=== PATIENT | male | born 1945 | race Caucasian/White ===

== ENCOUNTER 2021-06-21 21:32 | Inpatient (IN) | payer MEDICARE, SELFPAY ==
[2021-06-21] VITALS (7 sets, daily range): BP systolic 157–167; BP diastolic 77–81; PULSE 58–70; TEMP 36.9; O2SAT 96–97
[2021-06-21] MEDS: LIDOCAINE 1% (PF) 6 ML SUBCUT (23:33)
--- NOTE | 2021-06-21 23:36 | ED_ITS ---
HPI - Extremity Injury (Upper) General Chief Complaint: Extremity Injury, Upper Stated Complaint: infected finger Time Seen by Provider: 06/21/21 23:17 Source: patient Mode of arrival: Ambulatory History of Present Illness HPI narrative: Patient is a very healthy 75-year-old male who presents with right____ finger swelling. He noticed over the last 3-4 days. He says primary care provider today who started him on Bactrim he has taken 1 dose. There is even small I and D done in the office however the swelling has come back this evening and is more swollen he has got redness streaking up his arm. No fever or chills. He is having decreased range of motion due to swelling and pain. Related Data Previous Rx's Medication Instructions Recorded sulfamethoxazole 800 1 tab PO Q12H #20 tab 06/21/21 mg-trimethoprim 160 mg tablet (Bactrim DS) Allergies Allergy/AdvReac Type Severity Reaction Status Date / Time grass pollen Allergy Intermediate Verified 06/21/21 12:12 Review of Systems Review of Systems Narrative: GENERAL: Denies chills,fever HEENT: Denies throat pain RESPIRATORY: Denies dyspnea, cough, wheezing CARDIOVASCULAR: Denies chest pain, palpitations GASTROINTESTINAL: Denies nausea, vomiting MUSCULOSKELETAL: Denies extremity pain, injury SKIN: See HPI NEUROLOGIC: Denies weakness, dizziness, headache, numbness 8 point review of systems is negative except for those stated above and HPI Patient History Social History Smoking Status: Never smoker Smoking Status: Never smoker Exam Initial Vital Signs Initial Vital Signs: Vital Signs Pulse Rate 70 06/21/21 22:22 Blood Pressure 167/78 H 06/21/21 22:22 Pulse Oximetry 97 06/21/21 22:22 GENERAL: Well-appearing, well-nourished and in no acute distress. CARDIOVASCULAR: peripheral pulses in tact, cap refill <2 sec RESPIRATORY: No respiratory distress, speaks in full sentences without difficulty EXTREMITIES: Normal range of motion, no clubbing or edema. Neurovascularly intact NEUROLOGICAL: Cranial nerves II through XII grossly intact. Normal gait and speech. SKIN: Right 4th finger just proximal to nail there is significant swelling and fluctuation about 2 cm x 2 cm. Finger is quite tender to touch. He also has erythema streaking up beyond his elbow. Procedures Abscess I/D I&D #1: Site: other (Finger) Side (if applicable): right Local Anesthetic: lidocaine 1% Amount of anesthesia used (mL): 4 Technique: incised with #11 blade Amount of fluid expressed (mL): 2 Irrigation: No Nerve Block Nerve Block 1: Local Anesthetic: lidocaine 1% Amount of anesthesia used (mL): 4 Side: right Nerve Blocks: digital Procedure Successful: Yes Patient Tolerated Procedure: Well Complications: none Course Orders Ordered: ED Orders 06/21/21 23:45 Blood Culture Stat CBC Auto Diff [Complete Blood Count AUTO DIFF] Stat CMP [Comprehensive Metabolic Panel] Stat Lactate (Lactic Acid) Stat Procalcitonin Stat 06/22/21 00:59 Wound Culture and Gram Stain Stat Discontinued Medications Hydromorphone HCl (Hydromorphone 0.5 Mg Inj) 0.5 mg IV NOW ONE Stop: 06/22/21 01:06 Last Admin: 06/22/21 01:09 Dose: 0.5 mg Documented by: DANIELLE Ceftriaxone Sodium 1,000 mg/ (Sodium Chloride) 100 mls @ 200 mls/hr IV NOW ONE Stop: 06/22/21 00:29 Last Infusion: 06/22/21 01:37 Dose: 0 mls/hr Documented by: Admin: 06/22/21 00:48 Dose: 200 mls/hr Documented by: DANIELLE Vancomycin HCl/Dextrose (Vancomycin) 1,500 mg in 300 mls @ 200 mls/hr IV NOW ONE Stop: 06/22/21 03:41 Last Infusion: 06/22/21 04:00 Dose: 0 mls/hr Documented by: Admin: 06/22/21 02:15 Dose: 200 mls/hr Documented by: DANIELLE Ketorolac Tromethamine (Ketorolac 30 Mg/Ml Vial) 15 mg IV NOW ONE Stop: 06/22/21 01:07 Last Admin: 06/22/21 01:09 Dose: 15 mg Documented by: DANIELLE Lidocaine HCl (Lidocaine 1% (Pf)) 6 ml SUBCUT NOW ONE Stop: 06/21/21 23:27 Last Admin: 06/21/21 23:33 Dose: 6 ml Documented by: DANIELLE Morphine Sulfate (Morphine 2 Mg/Ml Inj) 2 mg IV NOW ONE Stop: 06/22/21 00:38 Last Admin: 06/22/21 00:48 Dose: 2 mg Documented by: DANIELLE Vital Signs Vital signs: Vital Signs - 8 hr 06/21/21 22:22 06/21/21 22:30 06/21/21 22:31 Temperature Pulse Rate 70 59 L 62 Blood Pressure 167/78 H 165/77 H Pulse Oximetry 97 97 96 06/21/21 22:46 06/21/21 23:00 06/21/21 23:01 Temperature 98.4 F Pulse Rate 58 L 62 Blood Pressure 157/81 H Pulse Oximetry 97 96 06/21/21 23:30 06/22/21 00:00 06/22/21 00:30 Temperature Pulse Rate 65 62 61 Blood Pressure 162/81 H Pulse Oximetry 97 99 97 06/22/21 00:56 06/22/21 01:00 06/22/21 01:01 Temperature Pulse Rate 64 60 59 L Blood Pressure 172/85 H 159/77 H Pulse Oximetry 98 99 99 06/22/21 01:30 06/22/21 02:00 06/22/21 02:01 Temperature Pulse Rate 60 62 65 Blood Pressure 170/89 H Pulse Oximetry 99 97 94 06/22/21 02:30 Temperature Pulse Rate 60 Blood Pressure Pulse Oximetry 97 MDM - Extremity Injury (Upper) Lab Data Result diagrams: 06/21/21 23:45 06/21/21 23:45 Labs: Lab Results 06/21/21 06/21/21 06/21/21 Range/Units 23:45 23:45 23:45 WBC 7.4 (4.5-11.0) X10^3/uL RBC 3.94 L (4.5-5.9) X10^6/uL Hgb 12.5 L (13.5-17.5) g/dL Hct 36.4 L (41-53) % MCV 92.4 (80-100) fL MCH 31.8 (26-34) PG MCHC 34.4 (30-36) % RDW 12.8 (11.6-14.8) % Plt Count 184 (150-400) X10^3/uL Neut % (Auto) 79.5 H (50-75) % Lymph % (Auto) 11.0 L (25-40) % [place] % (Auto) 7.7 (3-14) % Eos % (Auto) 1.5 L (2-4) % Baso % (Auto) 0.3 (0-2) % Neut # (Auto) 5900 (2485-9761) /uL Lymph # (Auto) 800 L (2965-8641) /uL [place] # (Auto) 600 (0-900) /uL Eos # (Auto) 100 (0-450) /uL Baso # (Auto) 0 (0-100) /uL Sodium 137 (137-145) mmol/L Potassium 3.7 (3.4-5.1) mmol/L Chloride 107 (98-107) mmol/L Carbon Dioxide 24 (22-32) mmol/L BUN 16 (9-20) mg/dL Creatinine 0.77 (0.66-1.25) mg/dL Estimated GFR > 60 (>60) mL/min BUN/Creatinine Ratio 20.8 (6-22) Glucose 112 H (80-110) mg/dL Lactate 0.6 L (0.7-2.1) mmol/L Calcium 8.6 (8.4-10.2) mg/dL Total Bilirubin 1.1 (0.2-1.3) mg/dL AST 34 (17-59) IU/L ALT 31 (<50) IU/L Alkaline Phosphatase 78 (38-126) U/L Total Protein 7.2 (6.3-8.2) g/dL Albumin 3.9 (3.5-5.0) g/dL Globulin 3.3 (1.7-4.1) g/dL Albumin/Globulin Ratio 1.2 (1.0-2.8) Procalcitonin (<0.5) ng/mL 06/21/21 Range/Units 23:45 WBC (4.5-11.0) X10^3/uL RBC (4.5-5.9) X10^6/uL Hgb (13.5-17.5) g/dL Hct (41-53) % MCV (80-100) fL MCH (26-34) PG MCHC (30-36) % RDW (11.6-14.8) % Plt Count (150-400) X10^3/uL Neut % (Auto) (50-75) % Lymph % (Auto) (25-40) % [place] % (Auto) (3-14) % Eos % (Auto) (2-4) % Baso % (Auto) (0-2) % Neut # (Auto) (1528-5314) /uL Lymph # (Auto) (8351-3535) /uL [place] # (Auto) (0-900) /uL Eos # (Auto) (0-450) /uL Baso # (Auto) (0-100) /uL Sodium (137-145) mmol/L Potassium (3.4-5.1) mmol/L Chloride (98-107) mmol/L Carbon Dioxide (22-32) mmol/L BUN (9-20) mg/dL Creatinine (0.66-1.25) mg/dL Estimated GFR (>60) mL/min BUN/Creatinine Ratio (6-22) Glucose (80-110) mg/dL Lactate (0.7-2.1) mmol/L Calcium (8.4-10.2) mg/dL Total Bilirubin (0.2-1.3) mg/dL AST (17-59) IU/L ALT (<50) IU/L Alkaline Phosphatase (38-126) U/L Total Protein (6.3-8.2) g/dL Albumin (3.5-5.0) g/dL Globulin (1.7-4.1) g/dL Albumin/Globulin Ratio (1.0-2.8) Procalcitonin 0.07 (<0.5) ng/mL MDM Narrative Medical decision making narrative: Patient has an obvious fluctuation on dorsal side of the hand just below the nail. I did I and D that area but only clear fluid came out. He has some streaking extending the on his antecubital fossa. The patient was unaware of streaking so was nursing. It is possible this developed in the emergency department. Patient remains afebrile blood work actually overall is reassuring. Patient is afebrile here with out erythema, no sign of sepsis. Concern for possible worsening infection possible abscess on finger. 1123-Dr. Edmond was consult prior to I and D he suggests keeping wound open with packing as best as possible and to closely monitor Dr. Ball updated on patient's symptoms test results and accepts patient Dr. Edmond is week consult id states admit to Medicine and he will evaluate Discharge Plan Departure Patient Disposition: Admitted as Observation Clinical Impression: Cellulitis of finger of right hand Admit Date/Time: 06/22/21 02:54 Admit Provider: Marcelo Ball
[2021-06-22] VITALS (25 sets, daily range): BP systolic 123–172; BP diastolic 63–89; PULSE 39–80; RESP 16–20; TEMP 36.8–37.3; O2SAT 94–99; BMI 27.1
[2021-06-22 00:09] LABS: Add Manual Diff / Slide Review NO; Basophils Absolute Auto 0 /uL (0-100); Basophils Percent Auto 0.3 % (0-2); Eosinophils Absolute Auto 100 /uL (0-450); Eosinophils Percent Auto 1.5 % (2-4); Hematocrit 36.4 % (41-53); Hemoglobin 12.5 g/dL (13.5-17.5); Lactate (Lactic Acid) 0.6 mmol/L (0.7-2.1); Lymphocytes Absolute Auto 800 /uL (1100-4500); Mean Corpuscular HGB Conc 34.4 % (30-36); Mean Corpuscular Hemoglobin 31.8 PG (26-34); Mean Corpuscular Volume 92.4 fL (80-100); Monocytes Absolute Auto 600 /uL (0-900); Monocytes Percent Auto 7.7 % (3-14); Neutrophils Absolute Auto 5900 /uL (1500-7000); Neutrophils Percent Auto 79.5 % (50-75); Platelet Count 184 X10^3/uL (150-400); Red Blood Cell Count 3.94 X10^6/uL (4.5-5.9); Red Cell Distribution Width 12.8 % (11.6-14.8); White Blood Cell Count 7.4 X10^3/uL (4.5-11.0)
[2021-06-22 00:17] LABS: Alanine Aminotransferase 31 IU/L (<50); Albumin 3.9 g/dL (3.5-5.0); Albumin Globulin Ratio 1.2 (1.0-2.8); Alkaline Phosphatase 78 U/L (38-126); Aspartate Aminotransferase 34 IU/L (17-59); BUN Creatinine Ratio 20.8 (6-22); Bilirubin Total 1.1 mg/dL (0.2-1.3); Blood Urea Nitrogen 16 mg/dL (9-20); Calcium 8.6 mg/dL (8.4-10.2); Carbon Dioxide 24 mmol/L (22-32); Chloride 107 mmol/L (98-107); Estimated Glomerular Filt Rate > 60 mL/min (>60); Globulin 3.3 g/dL (1.7-4.1); Glucose 112 mg/dL (80-110); HEMOLYSIS < 15 (0-50); Potassium 3.7 mmol/L (3.4-5.1); Sodium 137 mmol/L (137-145); Total Protein 7.2 g/dL (6.3-8.2)
[2021-06-22 00:39] LABS: Procalcitonin 0.07 ng/mL (<0.5)
[2021-06-22] MEDS: MORPHINE 2 MG/ML INJ IV (00:48)
[2021-06-22] MEDS: cefTRIAXone 1,000 MG in SODIUM CHLORIDE 0.9% 100 ML 200 ML IV (00:48)
[2021-06-22] MEDS: HYDROMORPHONE 0.5 MG INJ IV (01:09)
[2021-06-22] MEDS: KETOROLAC 30 MG/ML VIAL 15 MG IV (01:09)
[2021-06-22] MEDS: VANCOMYCIN 1,500 MG/300 ML PIGGYBACK 200 MG IV (02:15)
[2021-06-22] MEDS: ACETAMINOPHEN 325 MG TABLET 650 MG PO ×2 (07:21→11:23)
[2021-06-22] MEDS: OXYCODONE IR 5 MG TABLET PO ×4 (07:21→15:39)
[2021-06-22 08:00] LABS: COVID19 -Nasal RAPID Negative (Negative)
--- NOTE | 2021-06-22 08:11 | P.HP_ITS ---
History of Present Illness History of Present Illness Date Patient Seen: 06/22/21 Time Patient Seen: 08:00 Chief complaint: infected finger Narrative: Mr. Witt is a 75M with no significant PMH who presents with right finger swelling. He thinks he might have bumped his finger a week ago and then began feeling discomfort. He had worsening swelling behind his nail and it began affecting more of his finger. He felt feverish. He presented to a clinic which tried drainage of his finger and he said little was able to drain after incision. He was given bactrim. He went home and felt worse pain, he took only 1 dose of bactrim and then presented to the ED. In the ED workup was done, no temperature was documented, vitals otherwise notable for elevated blood pressure. Labs notable for WBC 7.4. hgb 12.5, plts 184. Creatinine 0.77. Lactate 0.6. Procal 0.07. His middle finger on his right hand had notable swelling and was I+D by ED physician. Per report clear liquid was expressed. He was ordered for antibiotics. Orthopedics was consulted and he was admitted for further evaluation. Family history: patient denies any family with medical issues Patient History Family & Social History Safety & Behavioral: Feels Safe in Current Yes Environment Been Physically Hurt or No Threatened By a Person Tobacco & Substance use: Smoking Status Never smoker Meds Home Medications and Allergies Home Medications Medication Instructions Recorded Confirmed Type sulfamethoxazole 800 1 tab PO Q12H #20 tab 06/21/21 06/21/21 Rx mg-trimethoprim 160 mg tablet (Bactrim DS) Allergies Allergy/AdvReac Type Severity Reaction Status Date / Time grass pollen Allergy Intermediate Verified 06/21/21 12:12 Review of Systems Review of Systems Narrative: 14 systems reviewed and negative aside from what is noted in HPI Exam Vital Signs (past 8 hours): - 06/22/21 00:30 06/22/21 00:56 06/22/21 01:00 Temperature Pulse Rate 61 64 60 Blood Pressure 172/85 H Pulse Oximetry 97 98 99 06/22/21 01:01 06/22/21 01:30 06/22/21 02:00 Temperature Pulse Rate 59 L 60 62 Blood Pressure 159/77 H Pulse Oximetry 99 99 97 06/22/21 02:01 06/22/21 02:30 06/22/21 03:00 Temperature Pulse Rate 65 60 39 L Blood Pressure 170/89 H Pulse Oximetry 94 97 98 06/22/21 03:01 06/22/21 03:30 06/22/21 04:00 Temperature Pulse Rate 62 66 65 Blood Pressure 162/73 H Pulse Oximetry 98 98 99 06/22/21 04:01 06/22/21 04:30 06/22/21 05:00 Temperature Pulse Rate 80 66 71 Blood Pressure 133/72 Pulse Oximetry 99 97 98 06/22/21 05:30 06/22/21 06:00 06/22/21 06:30 Temperature Pulse Rate 72 67 70 Blood Pressure Pulse Oximetry 97 95 95 06/22/21 07:00 06/22/21 07:25 Temperature 98.5 F Pulse Rate 71 79 Blood Pressure 141/80 H Pulse Oximetry 96 96 Oxygen Delivery Method Room Air Narrative Exam Narrative: GEN: no acute distress HEENT: moist mucuous membranes, PERRL NECK: trachea midline, no JVD CV: regular rate and rhythm, no murmurs PULM: clear bilaterally, no wheezes, rhonchi, rales ABD: soft, nontender, nondistended, no organomegaly, normal bowel sounds EXT: warm and well perfused with no edema, right middle finger with swelling and fluctiatio, tender to touch, entire finger is also swollen and erythemaouts, lymphangitic streaking noted on forearm to elbow, does have some limited motion with finger NEURO: awake, alert, with no focal deficits Objective Labs Result Diagrams: 06/21/21 23:45 06/21/21 23:45 Labs: Laboratory Results - last 24 hr 06/21/21 06/21/21 06/21/21 23:45 23:45 23:45 WBC 7.4 RBC 3.94 L Hgb 12.5 L Hct 36.4 L MCV 92.4 MCH 31.8 MCHC 34.4 RDW 12.8 Plt Count 184 Neut % (Auto) 79.5 H Lymph % (Auto) 11.0 L [place] % (Auto) 7.7 Eos % (Auto) 1.5 L Baso % (Auto) 0.3 Neut # (Auto) 5900 Lymph # (Auto) 800 L [place] # (Auto) 600 Eos # (Auto) 100 Baso # (Auto) 0 Sodium 137 Potassium 3.7 Chloride 107 Carbon Dioxide 24 BUN 16 Creatinine 0.77 Estimated GFR > 60 BUN/Creatinine Ratio 20.8 Glucose 112 H Lactate 0.6 L Calcium 8.6 Total Bilirubin 1.1 AST 34 ALT 31 Alkaline Phosphatase 78 Total Protein 7.2 Albumin 3.9 Globulin 3.3 Albumin/Globulin Ratio 1.2 Procalcitonin SARS-CoV-2 (PCR) 06/21/21 06/22/21 23:45 07:29 WBC RBC Hgb Hct MCV MCH MCHC RDW Plt Count Neut % (Auto) Lymph % (Auto) [place] % (Auto) Eos % (Auto) Baso % (Auto) Neut # (Auto) Lymph # (Auto) [place] # (Auto) Eos # (Auto) Baso # (Auto) Sodium Potassium Chloride Carbon Dioxide BUN Creatinine Estimated GFR BUN/Creatinine Ratio Glucose Lactate Calcium Total Bilirubin AST ALT Alkaline Phosphatase Total Protein Albumin Globulin Albumin/Globulin Ratio Procalcitonin 0.07 SARS-CoV-2 (PCR) Negative Assessment & Plan Assessment & Plan narrative: Mr. Diaz is a 75M with no significant PMH who presents with cellulitis with infected right middle finger 1. Acute cellulitis of right middle finger -continue on IV antibiotics -follow up cultures -no imaging for now -ortho consult to evalute if needs further surgical intervention -keep hand elevated CODE: Full Proxy: Chepe Witt, spouse I have utilized all available resources to reconcile the patient's home med ications Time Spent With Patient Critical Care time: I spent a total of [] minutes of critical care time on this patient's care today; this time is exclusive of procedural time.
[2021-06-22] MEDS: ENOXAPARIN 40 MG/0.4 ML SYRINGE SUBCUT (09:31)
[2021-06-22] MEDS: VANCOMYCIN 1,000 MG/200 ML PIGGYBACK 200 MG IV ×2 (11:23→18:21)
--- NOTE | 2021-06-22 14:56 | PM.CN ---
History of Present Illness Consult details Date Patient Seen: 06/22/21 Time Patient Seen: 14:57 Chief complaint: infected finger Narrative: Mr. Witt is a 75M with no significant PMH who presents with right ring finger swelling. He thinks he might have bumped his finger a week ago and then began feeling discomfort. He had worsening swelling behind his nail and it began affecting more of his finger. He felt feverish. He presented to a clinic and per the physician's report there was a small amount of purulent drainage. He was given bactrim. He went home and felt worse pain, he took only 1 dose of bactrim and then presented to the ED. In the ED workup was done, no temperature was documented, vitals otherwise notable for elevated blood pressure. His ring finger on his right hand had notable swelling and was incised and drained by ED physician. Per report clear liquid was expressed. He received rocephin and vancomycin. Dr Croft was consulted and suggested that the wound be left open and packed if possible. He was admitted to the hospitalist service for antibiotics and surveillance. He continues on vancomycin. Meds Home Medications and Allergies Home Medications Medication Instructions Recorded Confirmed Type sulfamethoxazole 800 1 tab PO Q12H #20 tab 06/21/21 06/21/21 Rx mg-trimethoprim 160 mg tablet (Bactrim DS) Allergies Allergy/AdvReac Type Severity Reaction Status Date / Time grass pollen Allergy Intermediate Verified 06/21/21 12:12 Review of Systems Constitutional Constitutional: Reports system reviewed and no additional complaints, except as documented Exam Vital Signs (past 8 hours): - 06/22/21 07:00 06/22/21 07:25 06/22/21 13:03 Temperature 98.5 F Pulse Rate 71 79 70 Respiratory Rate 16 Blood Pressure 141/80 H 123/68 Pulse Oximetry 96 96 98 06/22/21 14:30 Temperature 98.3 F Pulse Rate 62 Respiratory Rate 16 Blood Pressure 139/63 Pulse Oximetry 97 Oxygen Delivery Method Room Air Oxygen Flow Rate 0 Narrative Exam Narrative: Right ring finger is ecchymotic and swollen from the MCP joint, getting progressively worse distally. There is a small (< 1 cm) linear incision just proximal to the nail bed. I was unable to express any drainage from the incision. I felt no fluctuant fluid collection. The red streaking reported by the patient that had been going proximally almost to the elbow has resolved. Const General: cooperative, healthy appearing, well developed and well groomed Orientation: alert, awake and oriented x3 Objective Labs Result Diagrams: 06/21/21 23:45 06/21/21 23:45 Labs: Laboratory Results - last 24 hr 06/21/21 06/21/21 06/21/21 23:45 23:45 23:45 WBC 7.4 RBC 3.94 L Hgb 12.5 L Hct 36.4 L MCV 92.4 MCH 31.8 MCHC 34.4 RDW 12.8 Plt Count 184 Neut % (Auto) 79.5 H Lymph % (Auto) 11.0 L [place] % (Auto) 7.7 Eos % (Auto) 1.5 L Baso % (Auto) 0.3 Neut # (Auto) 5900 Lymph # (Auto) 800 L [place] # (Auto) 600 Eos # (Auto) 100 Baso # (Auto) 0 Sodium 137 Potassium 3.7 Chloride 107 Carbon Dioxide 24 BUN 16 Creatinine 0.77 Estimated GFR > 60 BUN/Creatinine Ratio 20.8 Glucose 112 H Lactate 0.6 L Calcium 8.6 Total Bilirubin 1.1 AST 34 ALT 31 Alkaline Phosphatase 78 Total Protein 7.2 Albumin 3.9 Globulin 3.3 Albumin/Globulin Ratio 1.2 Procalcitonin SARS-CoV-2 (PCR) 06/21/21 06/22/21 23:45 07:29 WBC RBC Hgb Hct MCV MCH MCHC RDW Plt Count Neut % (Auto) Lymph % (Auto) [place] % (Auto) Eos % (Auto) Baso % (Auto) Neut # (Auto) Lymph # (Auto) [place] # (Auto) Eos # (Auto) Baso # (Auto) Sodium Potassium Chloride Carbon Dioxide BUN Creatinine Estimated GFR BUN/Creatinine Ratio Glucose Lactate Calcium Total Bilirubin AST ALT Alkaline Phosphatase Total Protein Albumin Globulin Albumin/Globulin Ratio Procalcitonin 0.07 SARS-CoV-2 (PCR) Negative [facility] Tobacco & Substance Use Smoking Status: Never smoker Assessment & Plan Assessment and plan (1) Cellulitis of finger of right hand: Status: Acute Plan: Will continue to follow for changes, possible need for surgical intervention. Case discussed with Dr Croft. Time Spent With Patient Critical Care time: I spent a total of [] minutes of critical care time on this patient's care today; this time is exclusive of procedural time.
[2021-06-22] MEDS: OXYCODONE IR 10 MG TABLET PO (19:56)
[2021-06-23] MEDS: VANCOMYCIN 1,000 MG/200 ML PIGGYBACK 200 MG IV ×3 (02:47→18:37)
[2021-06-23] MEDS: OXYCODONE IR 10 MG TABLET PO ×5 (02:57→23:08)
[2021-06-23 05:19] LABS: Add Manual Diff / Slide Review NO; Basophils Absolute Auto 0 /uL (0-100); Basophils Percent Auto 0.3 % (0-2); Eosinophils Absolute Auto 100 /uL (0-450); Eosinophils Percent Auto 1.5 % (2-4); Hematocrit 35.9 % (41-53); Hemoglobin 12.1 g/dL (13.5-17.5); Lymphocytes Absolute Auto 800 /uL (1100-4500); Lymphocytes Percent Auto 13.2 % (25-40); Mean Corpuscular HGB Conc 33.7 % (30-36); Mean Corpuscular Hemoglobin 31.8 PG (26-34); Mean Corpuscular Volume 94.2 fL (80-100); Monocytes Absolute Auto 600 /uL (0-900); Monocytes Percent Auto 9.8 % (3-14); Neutrophils Absolute Auto 4800 /uL (1500-7000); Neutrophils Percent Auto 75.2 % (50-75); Platelet Count 179 X10^3/uL (150-400); Red Blood Cell Count 3.81 X10^6/uL (4.5-5.9); Red Cell Distribution Width 12.8 % (11.6-14.8); White Blood Cell Count 6.3 X10^3/uL (4.5-11.0)
[2021-06-23 05:33] LABS: BUN Creatinine Ratio 14.3 (6-22); Blood Urea Nitrogen 14 mg/dL (9-20); Calcium 8.4 mg/dL (8.4-10.2); Carbon Dioxide 26 mmol/L (22-32); Chloride 105 mmol/L (98-107); Estimated Glomerular Filt Rate > 60 mL/min (>60); Glucose 108 mg/dL (80-110); HEMOLYSIS < 15 (0-50); Potassium 3.9 mmol/L (3.4-5.1); Sodium 136 mmol/L (137-145)
[2021-06-23 06:00] VITALS: BP 137/69; PULSE 65; RESP 21; TEMP 36.8; O2SAT 95
[2021-06-23 08:35] VITALS: BP 123/70; PULSE 61; RESP 16; TEMP 36.5; O2SAT 97
[2021-06-23] MEDS: ENOXAPARIN 40 MG/0.4 ML SYRINGE SUBCUT (08:46)
--- NOTE | 2021-06-23 09:52 | PM.PNPO.1 ---
Subjective Subjective Date Patient Seen: 06/23/21 Time Patient Seen: 08:00 Interval history: Sitting in room comfortably; feels like finger looks worse this morning. No increase in pain. Cultures still pending. Exam Vital Signs (past 8 hours): - 06/23/21 06:00 06/23/21 08:35 Temperature 98.2 F 97.7 F Pulse Rate 65 61 Respiratory Rate 21 16 Blood Pressure 137/69 123/70 Pulse Oximetry 95 97 Oxygen Delivery Method Room Air Oxygen Flow Rate 0 Narrative Exam Narrative: Right ring finger looking better today, erythema seems to extend only to proximal PIP, extended to MIP joint yesterday. Unable to express drainage from incision. No fluctuant areas noted. Objective Labs Result Diagrams: 06/23/21 04:55 06/23/21 04:55 Labs: Laboratory Results - last 24 hr 06/23/21 06/23/21 04:55 04:55 WBC 6.3 RBC 3.81 L Hgb 12.1 L Hct 35.9 L MCV 94.2 MCH 31.8 MCHC 33.7 RDW 12.8 Plt Count 179 Neut % (Auto) 75.2 H Lymph % (Auto) 13.2 L [place] % (Auto) 9.8 Eos % (Auto) 1.5 L Baso % (Auto) 0.3 Neut # (Auto) 4800 Lymph # (Auto) 800 L [place] # (Auto) 600 Eos # (Auto) 100 Baso # (Auto) 0 Sodium 136 L Potassium 3.9 Chloride 105 Carbon Dioxide 26 BUN 14 Creatinine 0.98 Estimated GFR > 60 BUN/Creatinine Ratio 14.3 Glucose 108 Calcium 8.4 PFSH Social History household members: spouse Smoking Status: Never smoker alcohol intake: current Assessment & Plan Post-op Assessment and plan (1) Cellulitis of finger of right hand: Assessment and Plan narrative: No need for intervention at this time. Will continue to follow patient during hospitalization. Quality VTE Deep Vein Thrombosis/Pulmonary Embolism Present on Admission: No
[2021-06-23 11:19] LABS: Vancomycin Trough 9.8 ug/mL (10-20)
[2021-06-23 11:30] VITALS: O2SAT 96
--- NOTE | 2021-06-23 13:41 | PC.NURSE ---
Patients finger swollen and red, outlined in black pen and redness has stayed within boundaries but knuckle does look to be a bit more swollen then this am. Pt up independently. Given oxycodone earlier for pain, and patient to get some more now.
[2021-06-23 14:20] VITALS: BP 122/72; PULSE 57; RESP 16; TEMP 36.5; O2SAT 99
--- NOTE | 2021-06-23 15:07 | CM.IDA ---
Initial DCP Assessment Note Pt is a 75 yo male, resident of [facility], presents with right ring finger swelling and found to have infected finger and admitted for IV abx and observation PCP: Thompson Lancaster Payer: BETZAIDA/PHILIPP Reviewed chart, pt discussed in multidisciplinary rounds this morning. Patient expected to remain admitted for at least an additional 24-48 hrs for IV abx and then expected to DC home on po Met w/patient to introduce role. Patient is active and indp. 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 No History Provided By Patient,Medical Record Prior Living Arrangements House Household Members spouse Type of transporation used prior to Drives own vehicle admit Independent with ADL's Yes Is patient alert and oriented? Yes Barriers to Discharge No Comment Home w/spouse when medically cleared, likely po abx Discharge Plan Home Transportation Arrangement Family Referrals Initiated None needed
[2021-06-23] MEDS: ACETAMINOPHEN 325 MG TABLET 650 MG PO (15:27)
--- NOTE | 2021-06-23 17:41 | P.PN_ITS ---
Subjective Subjective Interval history: The patient endorses improved pain of the affected finger, along with improved swelling, and improvement of the lymphangitis streaking along his right forearm. The patient works with his hand as a welder fitter arc, and this is likely how he acquired this infection. He denies biting his nails. Exam Vital Signs (past 8 hours): - 06/23/21 11:30 06/23/21 14:20 Temperature 97.7 F Pulse Rate 57 L Respiratory Rate 16 Blood Pressure 122/72 Pulse Oximetry 96 99 Oxygen Delivery Method Room Air Oxygen Flow Rate 0 Const Other: Patient sitting up in bed upon my entering the room, in no apparent acute distress, with at bedside Eyes Other: No scleral icterus appreciated Resp Other: Lungs clear to auscultation bilaterally Cardio Other: RRR, S1 and S2 heart sounds normal, with no extra heart sounds or murmurs appr eciated GI Other: Soft, non-distended, non-tender, bowel sounds present Extrem Other: Right 4th digit with paronychia over the dorsum, with some circumferential spread, and lymph streaking appreciated over right inside forearm, just beyond the antecubital fossa Objective Labs Result Diagrams: 06/23/21 04:55 06/23/21 04:55 Labs: Laboratory Results - last 24 hr 06/23/21 06/23/21 06/23/21 04:55 04:55 10:45 WBC 6.3 RBC 3.81 L Hgb 12.1 L Hct 35.9 L MCV 94.2 MCH 31.8 MCHC 33.7 RDW 12.8 Plt Count 179 Neut % (Auto) 75.2 H Lymph % (Auto) 13.2 L [place] % (Auto) 9.8 Eos % (Auto) 1.5 L Baso % (Auto) 0.3 Neut # (Auto) 4800 Lymph # (Auto) 800 L [place] # (Auto) 600 Eos # (Auto) 100 Baso # (Auto) 0 Sodium 136 L Potassium 3.9 Chloride 105 Carbon Dioxide 26 BUN 14 Creatinine 0.98 Estimated GFR > 60 BUN/Creatinine Ratio 14.3 Glucose 108 Calcium 8.4 Vancomycin Trough 9.8 L PFSH Social History household members: spouse Smoking Status: Never smoker alcohol intake: current Assessment & Plan Assessment & Plan narrative: Mr. Diaz is a 75M with no significant PMH who presents with cellulitis of the right 4th digit, ring finger. 1. Acute cellulitis of right 4th digit, ring finger - IV vancomycin on-board from June 22, 2021 - Appreciate orthopedic consult recommendations regarding possible need for drainage, etc. VTE prophylaxis: Lovenox 40 mg daily Code Status: Full Code Proxy: Chepe Witt, spouse I have utilized all available resources to obtain, update, or confirm the patient's current medications. Time Spent With Patient Critical Care time: I spent a total of [] minutes of critical care time on this patient's care today; this time is exclusive of procedural time. Quality VTE Deep Vein Thrombosis/Pulmonary Embolism Present on Admission: No MIPS - Admit I confirm the patient?s Advance Care Plan is present, Code status is documented, Surrogate decision maker is in patient?s record [If Yes, STOP here]: Yes
--- NOTE | 2021-06-23 18:15 | PC.NURSE ---
Pt A&O x3. Ring finger of right hand red and swollen. Frequent complaints of high levels of pain in the finger, pt given 10 mg oxy PO for 9/10 pain. Pt was encouraged to apply heat and keep the hand elevated, still reporting high levels of pain but his behaviors indicate improvement. Pt received IV vanco at 1400, will hang another bag around 1830. Pt ate 100% of dinner. is at bedside.
[2021-06-23] MEDS: SODIUM CHLORIDE 0.9% 250 ML 21 ML IV (18:46)
[2021-06-23 22:00] VITALS: BP 127/78; PULSE 71; RESP 21; TEMP 37.3; O2SAT 95; O2SAT 97
[2021-06-24] VITALS (10 sets, daily range): BP systolic 111–152; BP diastolic 67–77; PULSE 52–63; RESP 11–18; TEMP 36.2–36.9; O2SAT 92–98; BMI 27.1
[2021-06-24] MEDS: OXYCODONE IR 10 MG TABLET PO ×4 (03:05→21:47)
[2021-06-24] MEDS: SODIUM CHLORIDE 0.9% FLUSH 10 ML IV (03:05)
[2021-06-24] MEDS: VANCOMYCIN 1,000 MG/200 ML PIGGYBACK 200 MG IV ×2 (03:05→12:44)
[2021-06-24] MEDS: ACETAMINOPHEN 325 MG TABLET 650 MG PO (03:06)
--- NOTE | 2021-06-24 07:47 | PM.PN.1 ---
Subjective Subjective Date Patient Seen: 06/24/21 Interval history: He is seen today to follow-up his infected right hand finger. Orthopedics has noted a worsening abscess formation so will be taking him for incision and drainage today. He is very concerned about the timing of his discharge and how he will be able to get transportation on the [place]. He is happy that the lymphangitic streaking on the right arm has resolved Exam Vital Signs (past 8 hours): Oxygen Delivery Method Room Air Oxygen Flow Rate 0 Narrative Exam Narrative: Alert and oriented x3. No apparent distress. He is very anxious about very transportation. Heart is regular rate and rhythm without murmur Lungs are clear to auscultation bilaterally Extremities have no ankle edema The right 4th finger distal aspect on the dorsum is quite swollen, with necrotic whitish surface skin and moderate tenderness. The redness extends to just proximal to the PIP joint without any signs of lymphangitic spreading currently. Objective Labs Result Diagrams: 06/23/21 04:55 06/23/21 04:55 Labs: Laboratory Results - last 24 hr 06/23/21 10:45 Vancomycin Trough 9.8 L [facility] Social History household members: spouse Smoking Status: Never smoker alcohol intake: current Assessment & Plan Assessment & Plan narrative: Mr. Diaz is a 75M with no significant PMH who presented with cellulitis of the right 4th digit, ring finger. 1. Acute cellulitis of right 4th digit, ring finger ?- IV vancomycin started on June 22, 2021 ?- Appreciate orthopedic consult recommendations regarding possible need for drainage, etc. - pending I and D with Dr. Mayo on 06/24 VTE prophylaxis: Lovenox 40 mg daily Code Status: Full Code Proxy: Chepe Witt, spouse Time Spent With Patient Critical Care time: I spent a total of [] minutes of critical care time on this patient's care today; this time is exclusive of procedural time. Quality VTE Deep Vein Thrombosis/Pulmonary Embolism Present on Admission: No
[2021-06-24] MEDS: ENOXAPARIN 40 MG/0.4 ML SYRINGE SUBCUT (08:20)
--- NOTE | 2021-06-24 08:31 | PC.NURSE ---
Addendum entered by Dianne Marie R.N. 06/24/21 18:46: Patient is back from surgery and had and i&D with pus removed from his finger. Dressing is intact and cdi, patient states that his block is wearing off and having some tingling. When it is time will give patient some oxycodone. Original Note: Assess- Patient is alert and oriented x3, he is eating breakfast. Complains of 7/10 pain, given 10mg of po oxycodone and this does help his discomfort. Patients r.fourth finger is red and swollen. Redness has extended beyond sharpy marker. He states that he does feel a bit better today and is hoping to go home to [facility].
--- NOTE | 2021-06-24 09:21 | P.PN_ITS ---
Subjective Subjective Date Patient Seen: 06/24/21 Time Patient Seen: 09:22 Interval history: Sitting up in bed, feeling fine, little pain. Exam Vital Signs (past 8 hours): - 06/24/21 08:00 Temperature 98.4 F Pulse Rate 60 Respiratory Rate 16 Blood Pressure 119/73 Pulse Oximetry 95 Oxygen Delivery Method Room Air Oxygen Flow Rate 0 Narrative Exam Narrative: Right ring finger is less erythematous than previous days, but there does appear to be a new collection of purulent drainage on the dorsal surface of the distal phalanx. No palmar fluid collection. Pt remains afebrile, aerobic cultures preliminarily no growth. Objective Labs Result Diagrams: 06/23/21 04:55 06/23/21 04:55 Labs: Laboratory Results - last 24 hr 06/23/21 10:45 Vancomycin Trough 9.8 L PFSH Social History household members: spouse Smoking Status: Never smoker alcohol intake: current Assessment & Plan Assessment and plan (1) Cellulitis of finger of right hand: Status: Acute Plan: Discussed case w/ Dr Mayo; may need additional I&D. Pt finished breakfast at 0 845. Will make NPO now, Dr Mayo will see later today and determine whether or not pt needs to go to surgery. Time Spent With Patient Critical Care time: I spent a total of [] minutes of critical care time on this patient's care today; this time is exclusive of procedural time. Quality VTE Deep Vein Thrombosis/Pulmonary Embolism Present on Admission: No
[2021-06-24] MEDS: LACTATED RINGERS 1,000 ML 42 ML IV (16:28)
--- NOTE | 2021-06-24 16:37 | PM.HP.1 ---
History of Present Illness History of Present Illness Date Patient Seen: 06/24/21 Time Patient Seen: 13:30 Chief complaint: infected finger Narrative: This is in a pleasant left hand dominant gentleman who developed an infection in his right ring finger. He lives on [address] and had a I and D for a nail infection but notes that it progressively worsened and he developed cellulitis in his arm. He was seen in the emergency room at [facility] and admitted for treatment for cellulitis. He has been on antibiotics but has been progressively worsening. Patient History Family & Social History Social History: household members spouse Prior Living Arrangements House Safety & Behavioral: Feels Safe in Current Yes Environment Been Physically Hurt or No Threatened By a Person Tobacco & Substance use: Smoking Status Never smoker alcohol intake current alcohol intake frequency holiday/special occasion Substance Use Type does not use Meds Home Medications and Allergies Home Medications Medication Instructions Recorded Confirmed Type sulfamethoxazole 800 1 tab PO Q12H #20 tab 06/21/21 06/22/21 Rx mg-trimethoprim 160 mg tablet (Bactrim DS) Allergies Allergy/AdvReac Type Severity Reaction Status Date / Time grass pollen Allergy Intermediate Verified 06/21/21 12:12 Review of Systems Review of Systems Narrative: He is otherwise healthy, he denies a history of diabetes, no other symptoms Exam Vital Signs (past 8 hours): - 06/24/21 09:40 06/24/21 16:25 Temperature 97.3 F L Pulse Rate 60 Respiratory Rate 16 Blood Pressure 152/77 H Pulse Oximetry 93 96 Oxygen Delivery Method Room Air Oxygen Flow Rate 0 Narrative Exam Narrative: HEENT is benign, lungs are clear cor regular rate and rhythm abdomen soft and benign he is alert he is oriented his right upper extremity shows severe swelling over the right ring finger which is in the dorsum of his right ring finger. It is fluctuant. There is erythema to the PIP joint and all they his dorsal fluctuance, he is nontender on the volar aspect of his finger, he has no pain with range of motion in his PIP joint some slight pain with range of motion in the PIP joint and has restricted motion the MCP joint has good motion. There are no axillary or epitrochlear nodes he previously had proximal cellulitis but that is improved. Objective Labs Result Diagrams: 06/23/21 04:55 06/23/21 04:55 Assessment & Plan Assessment and plan (1) Cellulitis of finger of right hand: Status: Acute Plan I recommended irrigation and debridement of of his right ring finger. He has clear evidence of an abscess on the dorsum of his right ring finger. Procedure alternatives risks benefits and complications were discussed in detail. He has already been on IV antibiotics and has had some improvement in his cellulitis but now has an obvious loculated abscess. Procedure options risks benefits and complications discussed in regard to proceed with this on an urgent basis. Time Spent With Patient Critical Care time: I spent a total of [] minutes of critical care time on this patient's care today; this time is exclusive of procedural time. Quality VTE Deep Vein Thrombosis/Pulmonary Embolism Present on Admission: No
--- NOTE | 2021-06-24 16:37 | SUR.OPER ---
Supine on padded OR bed, head on pillow, arms secured on padded arm boards at <90 degrees abduction, legs uncrossed, safety belt at thigh, tape over blanket over lower legs.
--- NOTE | 2021-06-24 16:45 | PM.OP.1 ---
Operative Date/Time/Diagnoses Date of procedure: 06/24/21 Time of procedure: 16:55 Pre-op diagnosis: Right ring finger abscess Post-op diagnosis: same Procedure & Clinicians Procedure: Right ring finger excisional irrigation and debridement Same procedure as scheduled: Yes Indications: This is a 75-year-old gentleman with the worsening right ring finger infection. He is brought to the operating room for irrigation and debridement as needed Surgeon: Susi Mayo Anesthesia Type: General, Sedation and Other (Digital block) Operative Notes Findings: Obvious infection with gross purulence, some necrotic tissue on the dorsum of the finger, no obvious DIP joint involvement Closure Type: not applicable Specimen(s): other (Cultures) Applied: drain(s) (Packed with the gauze) Estimated Blood Loss (mL): 10 Blood products transfused: none Procedure in detail: Patient brought the operating room he underwent induction of anesthesia. His right upper extremities prepped draped standard sterile fashion. Time-out was performed. He was on preoperative vancomycin but other antibiotics were held pending cultures. The right upper extremity was prepped and draped. A dense digital block was performed with lidocaine without epinephrine. Tourniquet was briefly elevated. Incision was made on the dorsum of the finger dissection was carried out through skin subcutaneous tissues. There was obvious gross purulence. Culture and sensitivity was sent. Small amount of necrotic subcutaneous tissue and fat was excised. There was gross purulence and some necrotic appearing dorsal skin. I meticulously dissected around the extensor tendon which did appear to be intact. The wound was meticulously irrigated with normal saline. I checked both the radial and ulnar aspect of the extensor tendon and the infection did not appear to go into the DIP joint. Wound was meticulously irrigated with antibiotic saline. The wound was then packed open with a Nu Gauze. The wound was dressed sterilely. Complications none. Complications: none Post-operative Condition: stable Disposition: Acute Care Plan for aftercare: Continue IV antibiotics. Check culture and sensitivity. Okay to begin dressing changes tomorrow or Saturday. Anticipate discharge to home Saturday or Saturday.
[2021-06-24] MEDS: BUPIVACAINE 0.5% (PF) VIAL 30 ML INJ (17:16)
[2021-06-24] MEDS: CEFAZOLIN 2 GM/20 ML SYRINGE IV (17:20)
[2021-06-24] MEDS: VANCOMYCIN 1,250 MG/250 ML PIGGYBACK 166 MG IV (20:10)
[2021-06-24] MEDS: LACTATED RINGERS 1,000 ML 125 ML IV (20:10)
[2021-06-24] MEDS: ACETAMINOPHEN 325 MG TABLET 975 MG PO (20:44)
[2021-06-24] MEDS: OXYCODONE IR 5 MG TABLET PO (21:17)
[2021-06-24] MEDS: GENTAMICIN 120 MG in SODIUM CHLORIDE 0.9% 100 ML 103 ML IV (21:55)
[2021-06-25] VITALS (7 sets, daily range): BP systolic 110–141; BP diastolic 64–78; PULSE 55–68; RESP 14–18; TEMP 36.4–37.1; O2SAT 95–98
[2021-06-25] MEDS: CEFAZOLIN 2 GM/20 ML SYRINGE IV ×3 (00:31→17:07)
[2021-06-25] MEDS: OXYCODONE IR 5 MG TABLET PO ×3 (00:36→13:43)
[2021-06-25] MEDS: VANCOMYCIN 1,250 MG/250 ML PIGGYBACK 166 MG IV ×3 (04:09→20:21)
[2021-06-25] MEDS: OXYCODONE IR 10 MG TABLET PO ×4 (04:09→20:19)
[2021-06-25 05:07] LABS: Hematocrit 34.2 % (41-53); Hemoglobin 11.6 g/dL (13.5-17.5); Mean Corpuscular HGB Conc 33.8 % (30-36); Mean Corpuscular Hemoglobin 31.7 PG (26-34); Mean Corpuscular Volume 93.6 fL (80-100); Platelet Count 204 X10^3/uL (150-400); Red Blood Cell Count 3.65 X10^6/uL (4.5-5.9); Red Cell Distribution Width 12.9 % (11.6-14.8); White Blood Cell Count 4.6 X10^3/uL (4.5-11.0)
[2021-06-25] MEDS: ACETAMINOPHEN 325 MG TABLET 975 MG PO ×3 (09:06→20:19)
--- NOTE | 2021-06-25 11:17 | PT-IP ANOTE ---
Received PT orders and reviewed the chart, noting pt has been independently walking to the toilet. Discussed with RN who did not identify any acute PT needs. Phoned Dr. Mayo who agreed PT could discharge therapy orders.
[2021-06-25] MEDS: ENOXAPARIN 40 MG/0.4 ML SYRINGE SUBCUT (11:57)
--- NOTE | 2021-06-25 12:18 | PM.PNPO.1 ---
Subjective Subjective Date Patient Seen: 06/25/21 Time Patient Seen: 12:20 Interval history: He notes he is doing okay is much better than he was yesterday. His pain is decreased. Exam Vital Signs (past 8 hours): - 06/25/21 07:00 06/25/21 09:35 06/25/21 11:36 Temperature 97.5 F L 98.8 F Pulse Rate 66 55 L Respiratory Rate 16 14 Blood Pressure 128/77 110/69 Pulse Oximetry 95 96 95 Oxygen Delivery Method Room Air Oxygen Flow Rate 0 Narrative Exam Narrative: Decreased erythema and swelling in the finger, open wound on the dorsum of the right ring finger with slight purulence drainage. The Nu Gauze was carefully irrigated and removed. A new dressing was placed with a moist Nu Gauze. There is no proximal cellulitis. Objective Labs Result Diagrams: 06/25/21 05:00 06/23/21 04:55 Labs: Laboratory Results - last 24 hr 06/25/21 05:00 WBC 4.6 RBC 3.65 L Hgb 11.6 L Hct 34.2 L MCV 93.6 MCH 31.7 MCHC 33.8 RDW 12.9 Plt Count 204 PFSH Social History household members: spouse Smoking Status: Never smoker alcohol intake: current Assessment & Plan Post-op Postoperative Procedures: Procedures Operation Date: 06/24/21 16:45 Actual Procedure Side Surgeon p Incision and Drainage Wound/Extremity Right ring Finger Susi Mayo MD Postoperative day: 1 Postoperative status narrative: He is improving postoperatively. He still has a significant right hand infection. His erythema is slightly decreased but he clearly needs additional treatment and antibiotics IV. Postoperative plan narrative: Continue with IV antibiotics. Check cultures for final her sent final sensitivities continue with daily dressing changes. Time Spent With Patient Time with patient: 15-24 minutes Quality VTE Deep Vein Thrombosis/Pulmonary Embolism Present on Admission: No
--- NOTE | 2021-06-25 16:01 | PM.PN.1 ---
Subjective Subjective Date Patient Seen: 06/25/21 Time Patient Seen: 08:00 Interval history: He went to OR yesterday for I+D of finger. Today he notes intermittent severe pain, but at the moment pain is well controlled. Exam Vital Signs (past 8 hours): - 06/25/21 09:35 06/25/21 11:36 Temperature 98.8 F Pulse Rate 55 L Respiratory Rate 14 Blood Pressure 110/69 Pulse Oximetry 96 95 Oxygen Delivery Method Room Air Oxygen Flow Rate 0 Narrative Exam Narrative: GEN: no acute distress CV: regular rate and rhythm, no murmurs PULM: clear bilaterally EXT: right 4th finger swollen, bandaged, clean/dry/intact Objective Labs Result Diagrams: 06/25/21 05:00 06/23/21 04:55 Labs: Laboratory Results - last 24 hr 06/25/21 05:00 WBC 4.6 RBC 3.65 L Hgb 11.6 L Hct 34.2 L MCV 93.6 MCH 31.7 MCHC 33.8 RDW 12.9 Plt Count 204 PFSH Social History household members: spouse Smoking Status: Never smoker alcohol intake: current Assessment & Plan Assessment & Plan narrative: Mr. Diaz is a 75M with no significant PMH who presented with cellulitis of the right 4th digit, ring finger. 1. Acute cellulitis of right 4th digit, ring finger ?- IV vancomycin started on June 22, 2021 ?- Appreciate orthopedic consult recommendations regarding possible need for drainage, etc. ?- I+D done on 06/24, discussed with orthopedic surgery who recommends continued monitoring for another day to see improvement in finger - continue PO opiates as needed for pain control VTE prophylaxis: Lovenox 40 mg daily Time Spent With Patient Critical Care time: I spent a total of [] minutes of critical care time on this patient's care today; this time is exclusive of procedural time. Quality VTE Deep Vein Thrombosis/Pulmonary Embolism Present on Admission: No
--- NOTE | 2021-06-25 18:05 | PC.NURSE ---
Pt is AxOx4, independent and cooperative. VSS except pt has pain on R 4th finger and receiving PRN Oxy 10mg around the clock. Otherwise, no issues. Pt probably d/c tomorrow.
[2021-06-25 20:08] LABS: Vancomycin Trough 15.7 ug/mL (10-20)
[2021-06-25] MEDS: VANCOMYCIN TROUGH 1 REQUEST MISC (20:18)
[2021-06-26] VITALS (7 sets, daily range): BP systolic 119–143; BP diastolic 57–86; PULSE 51–68; RESP 14–21; TEMP 36.6–37.6; O2SAT 96–97
[2021-06-26] MEDS: OXYCODONE IR 10 MG TABLET PO ×5 (00:16→18:03)
[2021-06-26] MEDS: CEFAZOLIN 2 GM/20 ML SYRINGE IV ×3 (00:16→16:44)
[2021-06-26] MEDS: VANCOMYCIN 1,250 MG/250 ML PIGGYBACK 166 MG IV ×3 (04:55→20:05)
[2021-06-26] MEDS: ACETAMINOPHEN 325 MG TABLET 975 MG PO ×3 (09:13→20:06)
[2021-06-26] MEDS: ENOXAPARIN 40 MG/0.4 ML SYRINGE SUBCUT (09:14)
[2021-06-26] MEDS: SODIUM CHLORIDE 0.9% FLUSH 10 ML IV ×2 (09:15→20:07)
--- NOTE | 2021-06-26 12:23 | PM.PNPO.1 ---
Subjective Subjective Date Patient Seen: 06/26/21 Time Patient Seen: 12:23 Interval history: Sitting up in bed, comfortable. Exam Vital Signs (past 8 hours): - 06/26/21 05:00 06/26/21 08:50 Temperature 99.2 F 98.1 F Pulse Rate 54 L 62 Respiratory Rate 14 21 Blood Pressure 133/76 143/80 H Pulse Oximetry 97 96 Oxygen Delivery Method Room Air Oxygen Flow Rate 0 Narrative Exam Narrative: Dressing removed. Old bloody drainage on gauze, unable to express active drainage. There does not appear to be any new purulent fluid collection. Staph aureus, susceptibilities pending. Objective Labs Result Diagrams: 06/25/21 05:00 06/23/21 04:55 Labs: Laboratory Results - last 24 hr 06/25/21 19:30 Vancomycin Trough 15.7 PFSH Social History household members: spouse Smoking Status: Never smoker alcohol intake: current Assessment & Plan Post-op Assessment and plan (1) Cellulitis of finger of right hand: (2) Status post incision and drainage: Assessment and Plan narrative: POD# 2. Begin daily dressing changes, pack with damp gauze, dry on top. May discharge on appropriate antibiotic when susceptibilities back. Pt can do dressing changes at home if he and his are comfortable, or can follow up with wound care. Will continue to follow while pt hospitalized. Postoperative Procedures: Procedures Operation Date: 06/24/21 16:45 Actual Procedure Side Surgeon p Incision and Drainage Wound/Extremity Right ring Finger Susi Mayo MD Quality VTE Deep Vein Thrombosis/Pulmonary Embolism Present on Admission: No
--- NOTE | 2021-06-26 14:25 | CM.DPC ---
DCP Cont: Per Ortho, pt's infection seems to be stabilizing and still awaiting cultures to return before pt safe to d/c home on oral abx and daily dressing changes. Per RN, pt has been independent in the room and spouse plans to provide transport back to [place] at discharge. CASIE Michael
--- NOTE | 2021-06-26 15:47 | PM.PN.1 ---
Subjective Subjective Date Patient Seen: 06/26/21 Time Patient Seen: 08:00 Interval history: He has intermittent finger discomfort, but is much improved, and quite well controlled. Exam Vital Signs (past 8 hours): - 06/26/21 08:50 06/26/21 12:00 Temperature 98.1 F 99.7 F H Pulse Rate 62 51 L Respiratory Rate 21 19 Blood Pressure 143/80 H 131/78 Pulse Oximetry 96 97 Oxygen Delivery Method Room Air Oxygen Flow Rate 0 Narrative Exam Narrative: GEN: no acute distress CV: regular rate and rhythm, no murmurs PULM: clear bilaterally EXT: right 4th finger swollen, bandaged, clean/dry/intact Objective Labs Result Diagrams: 06/25/21 05:00 06/23/21 04:55 Labs: Laboratory Results - last 24 hr 06/25/21 19:30 Vancomycin Trough 15.7 PFSH Social History household members: spouse Smoking Status: Never smoker alcohol intake: current Assessment & Plan Assessment & Plan narrative: Mr. Diaz is a 75M with no significant PMH who presented with cellulitis of the right 4th digit, ring finger. 1. Acute cellulitis of right 4th digit, ring finger ?- IV vancomycin started on June 22, 2021, ortho also started cefazolin ?- Appreciate orthopedic consult recommendations regarding possible need for drainage, etc. ?- I+D done on 06/24, discussed with orthopedic surgery who recommends continued monitoring for another day to see improvement in finger ?- continue PO opiates as needed for pain control - cultures preliminarily growing staph, await sensis VTE prophylaxis: Lovenox 40 mg daily Time Spent With Patient Critical Care time: I spent a total of [] minutes of critical care time on this patient's care today; this time is exclusive of procedural time. Quality VTE Deep Vein Thrombosis/Pulmonary Embolism Present on Admission: No
[2021-06-27] MEDS: CEFAZOLIN 2 GM/20 ML SYRINGE IV ×2 (00:22→08:40)
[2021-06-27] MEDS: OXYCODONE IR 10 MG TABLET PO ×2 (00:36→04:19)
[2021-06-27 04:00] VITALS: BP 134/73; PULSE 66; RESP 20; TEMP 36.7; O2SAT 95
[2021-06-27] MEDS: VANCOMYCIN 1,250 MG/250 ML PIGGYBACK 166 MG IV (04:10)
[2021-06-27] MEDS: ACETAMINOPHEN 325 MG TABLET 975 MG PO ×2 (08:37→14:16)
[2021-06-27] MEDS: OXYCODONE IR 5 MG TABLET PO (08:38)
[2021-06-27] MEDS: ENOXAPARIN 40 MG/0.4 ML SYRINGE SUBCUT (08:39)
[2021-06-27] MEDS: SODIUM CHLORIDE 0.9% FLUSH 10 ML IV (08:40)
[2021-06-27 09:34] VITALS: BP 124/77; PULSE 58; RESP 16; TEMP 36.3; O2SAT 99
--- NOTE | 2021-06-27 12:21 | PM.DS.1 ---
History of Present Illness History of Present Illness Date Patient Seen: 06/27/21 Chief complaint: infected finger Narrative: Per Dr. Ball, Mr. Witt is a 75M with no significant PMH who presents with right finger swelling. He thinks he might have bumped his finger a week ago and then began feeling discomfort. He had worsening swelling behind his nail and it began affecting more of his finger. He felt feverish. He presented to a clinic which tried drainage of his finger and he said little was able to drain after incision. He was given bactrim. He went home and felt worse pain, he took only 1 dose of bactrim and then presented to the ED. In the ED workup was done, no temperature was documented, vitals otherwise notable for elevated blood pressure. Labs notable for WBC 7.4. hgb 12.5, plts 184. Creatinine 0.77. Lactate 0.6. Procal 0.07. His middle finger on his right hand had notable swelling and was I+D by ED physician. Per report clear liquid was expressed. He was ordered for antibiotics. Orthopedics was consulted and he was admitted for further evaluation. Family history: patient denies any family with medical issues Discharge Providers Provider Date of admission: 06/23/21 10:00 Discharge Date: 06/27/21 Primary care physician: Thompson Lancaster MD Consults: 06/22/21 06:36 Consult to Orthopedic Surgery Routine Comment: Consulting Provider: Sebastián Croft Reason for consultation: hand cellulitis Has provider been notified: Yes 06/24/21 18:33 Consult to Discharge Planning Routine Comment: Consult to Physical Therapy Evaluate & Treat Comment: Physician Instructions: Evaluate and Treat Consult to Respiratory Therapy Evaluate & Treat Comment: Physician Instructions: Evaluate and treat Discharge provider: Eugene Looney DO Summary Hospital Course Discharge Diagnosis: 1. Acute cellulitis of right 4th digit and small abscess Hospital Course: Mr. Diaz is a 75M with no significant PMH who presented with cellulitis of the right 4th digit. He underwent I&D with orthopedic surgery. Patient stayed for a few days for monitoring per orthopedic surgery. The bacterial analyzer was broken for a short period of time and resulted in delays in sensitivity testing according to the lab. Cultures showed staph aureus at the time of discharge, and orthopedic surgery and the patient no longer wanted to wait on culture results. He was discharged home on cephalexin and doxycycline for another 7 days. Time Spent with Patient Time spent: Less than 30 minutes Exam Vital Signs (past 8 hours): - 06/27/21 09:34 Temperature 97.3 F L Pulse Rate 58 L Respiratory Rate 16 Blood Pressure 124/77 Pulse Oximetry 99 Oxygen Delivery Method Room Air Oxygen Flow Rate 0 Narrative Exam Narrative: GEN: MELODYWÁngel male, no acute distress Objective Labs Result Diagrams: 06/25/21 05:00 06/23/21 04:55 PFSH Social History household members: spouse Smoking Status: Never smoker alcohol intake: current Discharge Plan Discharge Plan Patient Disposition: Home Provider Discharge Comment: You were admitted to the hospital with an infection in your hand. You had surgery with orthopedic surgery. We will call if any changes are needed to your antibiotics as it may take a few more days for these results. Discharge orders & Medications Prescriptions: New cephalexin 500 mg capsule 500 mg PO QID 7 Days Qty: 28 0RF doxycycline hyclate 100 mg tablet 100 mg PO BID 7 Days Qty: 14 0RF Discontinued sulfamethoxazole-trimethoprim [Bactrim DS] 800-160 mg tablet 1 tab PO Q12H Qty: 20 0RF Follow up/Referrals: Thompson Lancaster MD [Primary Care Provider] - Diet/Activity/Treatments Diet: Diet as Tolerated Activity: As tolerated Visit Report/Discharge Packet Instructions: DI for Cellulitis -- Adult, Cephalexin, DI for Incision and Drainage of a Joint, Doxycycline (By mouth) Discharge Data Primary Care Provider: Thompson Lancaster Quality VTE Deep Vein Thrombosis/Pulmonary Embolism Present on Admission: No
--- NOTE | 2021-06-27 14:24 | PM.PNPO.1 ---
Subjective Subjective Date Patient Seen: 06/27/21 Time Patient Seen: 12:30 Interval history: Pt comfortable, anxious to go home. Exam Vital Signs (past 8 hours): - 06/27/21 09:34 Temperature 97.3 F L Pulse Rate 58 L Respiratory Rate 16 Blood Pressure 124/77 Pulse Oximetry 99 Oxygen Delivery Method Room Air Oxygen Flow Rate 0 Narrative Exam Narrative: Pt evaluated by Dr Mayo. Wound without evidence of purulence, no new fluid collections. Demonstrated packing method with patient. Good ROM in fingers and wrist, sensation intact throughout UE. Objective Labs Result Diagrams: 06/25/21 05:00 06/23/21 04:55 PFSH Social History household members: spouse Smoking Status: Never smoker alcohol intake: current Assessment & Plan Post-op Assessment and plan (1) Status post incision and drainage: Assessment and Plan narrative: POD# 3. Staph aureus, pending sensitivities. Ok to discharge on appropriate antibiotics. Pt can do dressing changes at home if he and his are comfortable, or can follow up with wound care.? Will continue to follow while pt hospitalized. (2) Cellulitis of finger of right hand: Postoperative Procedures: Procedures Operation Date: 06/24/21 16:45 Actual Procedure Side Surgeon p Incision and Drainage Wound/Extremity Right ring Finger Susi Mayo MD Quality VTE Deep Vein Thrombosis/Pulmonary Embolism Present on Admission: No
--- NOTE | 2021-06-27 15:18 | PC.NURSE ---
Pt is dressed and ready for discharge home with Spouse to [facility]. Pt has a Priority Boarding Pass. IV has been removed. Went over d/c instructions with Pt and Spouse - discussed d/c meds, time of last dose, reviewed stroke education, reminded Pt to take his full course of antibiotics as prescribed and to consider a probiotic if he develops diarrhea. Encouraged fluid intake to prevent constipation or dehydration. Pt has been prescribed abx based on available micro results and will be notified if the final culture results recommend a different course of abx. Pt states that if he doesn't hear something in the next day or [address] Mayo directly. Pt and Spouse were trained by Dr. Mayo this morning on how to change the dressing and dressing supplies were given to Pt. Pt denies further questions and was taken out via w/c by RN to [facility]OV with Spouse and all belongings.
== END 2021-06-27 15:26 | disposition home or self-care (01) | DRG 580 ==
LOC: ED 23:17 → AC 06-22 02:55
PROVIDERS: Orthopaedic Surgery; Admitting Provider Internal Medicine; Emergency Provider Emergency Medicine; PCP Family Medicine; Referring Provider Emergency Medicine; Visit Provider Internal Medicine
PROC: 0JBJ0ZZ Excision of Right Hand Subcutaneous Tissue and Fascia, Open Approach (ICD-10-PCS; principal; 2021-06-24 16:45)
DX: L03.011 Cellulitis of right finger (principal); I96 Gangrene, not elsewhere classified; Z20.822 Contact with and (suspected) exposure to COVID-19; A49.01 Methicillin susceptible Staphylococcus aureus infection, unspecified site
CPT/HCPCS: 10060; 36415; 64450; 80048; 80053; 80202; 83605; 84145; 85025; 85027; 87040; 87070; 87075; 87077; 87147; 87186; 87205; 87635; 94760; 96365; 96366; 96367; 96375; 99284; C9803; G0378; J0690; J0696; J1170; J1650; J1885; J2250; J2270; J2704; J3010

== ENCOUNTER → 2022-03-26 13:02 | Outpatient (CLI) | payer MEDICARE, SELFPAY ==
[2022-03-21 12:37] VITALS: BMI 27.1
[2022-03-26 19:16] LABS: Hematocrit 38.7 % (41-53); Hemoglobin 13.2 g/dL (13.5-17.5); Mean Corpuscular HGB Conc 34.2 % (30-36); Mean Corpuscular Hemoglobin 32.2 PG (26-34); Platelet Count 202 X10^3/uL (150-400); Red Blood Cell Count 4.11 X10^6/uL (4.5-5.9); Red Cell Distribution Width 12.8 % (11.6-14.8); White Blood Cell Count 4.1 X10^3/uL (4.5-11.0)
[2022-03-26 19:25] LABS: Alanine Aminotransferase 26 IU/L (<50); Albumin 4.1 g/dL (3.5-5.0); Albumin Globulin Ratio 1.4 (1.0-2.8); Alkaline Phosphatase 80 U/L (38-126); Aspartate Aminotransferase 32 IU/L (17-59); BUN Creatinine Ratio 19.6 (6-22); Bilirubin Total 0.9 mg/dL (0.2-1.3); Blood Urea Nitrogen 18 mg/dL (9-20); Calcium 9.2 mg/dL (8.4-10.2); Carbon Dioxide 27 mmol/L (22-32); Chloride 102 mmol/L (98-107); Cholesterol 209 mg/dL (140-199); Estimated Glomerular Filt Rate > 60 mL/min (>60); Globulin 2.9 g/dL (1.7-4.1); Glucose 103 mg/dL (80-110); HDL Cholesterol 36 mg/dL (40-60); HEMOLYSIS < 15 (0-50); LDL Cholesterol Calculated 148 mg/dL (<100); Potassium 4.2 mmol/L (3.4-5.1); Sodium 136 mmol/L (137-145); Triglycerides 125 mg/dL (35-150)
[2022-03-26 19:46] LABS: Neutrophils Absolute Manual 2624 /uL (3000-5900); Platelet Estimate Adequate on smear; RBC Morphology Normal Morphology; Total Cells Counted 100
[2022-03-26 19:56] LABS: Prostate Specific Antigen Scrn 1.94 ng/mL (0.1-4.0)
== END ==
PROVIDERS: PCP Family Medicine; Visit Provider Family Medicine
DX: F32.9 Major depressive disorder, single episode, unspecified (principal); Z13.6 Encounter for screening for cardiovascular disorders; Z12.5 Encounter for screening for malignant neoplasm of prostate; R42 Dizziness and giddiness; Z11.59 Encounter for screening for other viral diseases; Z13.1 Encounter for screening for diabetes mellitus; Z13.220 Encounter for screening for lipoid disorders
CPT/HCPCS: 80053; 80061; 85025; G0103